=== PATIENT | female | born 1975 | race Caucasian/White ===

== ENCOUNTER 2019-12-18 15:25 | Outpatient (CLI) | payer OTHER, SELFPAY ==
--- NOTE | 2019-12-18 15:31 | MM_ITS ---
WS: [id number] BILATERAL DIGITAL SCREENING MAMMOGRAPHY WITH CAD CLINICAL INFORMATION: SCREENING HISTORY: Screening mammogram. No current complaints. COMPARISON: 43 TECHNIQUE: Bilateral CC and MLO views. FINDINGS: The breasts are composed of heterogeneous fibroglandular density tissue, which can limit the detectio n of small underlying mass lesions. Slightly spiculated lesion 7 mm outer left breast best seen on th e CC view. Recommend spot compression views and ultrasound for further evaluation. Right breast is un remarkable and unchanged. MM/[place] [id number] IMPRESSION: BI-RADS: 0-Incomplete: Need additional imaging evaluation FOLLOW UP: Need Additional Imaging RECOMMEND LEFT BREAST DIAGNOSTIC MAMMOGRAPHY WITH SPOT COMPRESSION VIEWS AND UL TRASOUND
== END 2019-12-18 15:26 | disposition home or self-care (01) ==
LOC: RADSHAW 15:28
PROVIDERS: PCP Electrodiagnostic Medicine; Visit Provider Electrodiagnostic Medicine
DX: Z12.31 Encounter for screening mammogram for malignant neoplasm of breast (principal); N64.89 Other specified disorders of breast
CPT/HCPCS: 77067

== ENCOUNTER 2020-01-05 15:26 | Outpatient (CLI) | payer OTHER, SELFPAY ==
--- NOTE | 2020-01-05 15:47 | US_ITS ---
WS: [id number] ULTRASOUND PELVIS TECHNIQUE: Transabdominal and transvaginal. ULTRASOUND PELVIS TECHNIQUE: Transabdominal. CLINICAL INFORMATION: PELVIC AND PERINEAL PAIN LMP: December 29, 2019 : No. COMPARISON: None. FINDINGS: Uterus Orientation: Anteverted. Size: 10.4 cm x 3.5 cm x 5.1 cm. Masses: None. Cervix: 4.6 cm. Endometrium: Normal. Endometrium thickness: 6.8 mm Adnexa: Left ovary removed. Normal right ovary. Free fluid: None. Other findings: None. US/US pelvic with transvaginal IMPRESSION: 1. Left ovary removed. Normal right ovary. 2. Normal uterus and endometrium.
== END 2020-01-05 15:27 | disposition home or self-care (01) ==
LOC: US 15:31
PROVIDERS: PCP Electrodiagnostic Medicine; Visit Provider Electrodiagnostic Medicine
DX: R10.2 Pelvic and perineal pain (principal); R10.9 Unspecified abdominal pain; Z90.721 Acquired absence of ovaries, unilateral
CPT/HCPCS: 76830; 76856

== ENCOUNTER 2020-01-09 11:29 | Outpatient (CLI) | payer OTHER, SELFPAY ==
--- NOTE | 2020-01-09 12:00 | MM_ITS ---
WS: [id number] LEFT DIGITAL MAMMOGRAPHY WITH CAD CLINICAL INFORMATION: abnormal mammo 7mm lesion LT breast COMPARISON: December 18, 2019 TECHNIQUE: 2 views of the left breast were obtained. FINDINGS: Scattered fibroglandular densities of the left breast. Stable 6 to 7 mm lesion upper outer left breas t. Ultrasound is pending. ULTRASOUND BREAST LEFT TECHNIQUE: Ultrasound left breast focused area of concern. CLINICAL INFORMATION: abnormal mammo 7mm lesion LT breast COMPARISON: None. FINDINGS: Ultrasound left breast 12 to 3:00 position. Several small cystic and slightly complex cystic lesions. Findings compatible with fibrocystic changes. This has a benign appearance. Recommend return to [facility] screening mammography. MM/[place] [id number] IMPRESSION: BI-RADS: 2-Benign FOLLOW UP: 1 Year Follow-up Recommend return to annual screening mammography.
--- NOTE | 2020-01-09 12:45 | US_ITS ---
WS: [id number] LEFT DIGITAL MAMMOGRAPHY WITH CAD CLINICAL INFORMATION: abnormal mammo 7mm lesion LT breast COMPARISON: December 18, 2019 TECHNIQUE: 2 views of the left breast were obtained. FINDINGS: Scattered fibroglandular densities of the left breast. Stable 6 to 7 mm lesion upper outer left breas t. Ultrasound is pending. ULTRASOUND BREAST LEFT TECHNIQUE: Ultrasound left breast focused area of concern. CLINICAL INFORMATION: abnormal mammo 7mm lesion LT breast COMPARISON: None. FINDINGS: Ultrasound left breast 12 to 3:00 position. Several small cystic and slightly complex cystic lesions. Findings compatible with fibrocystic changes. This has a benign appearance. Recommend return to [facility] screening mammography. US/US breast LT limited* [id number] IMPRESSION: BI-RADS: 2-Benign FOLLOW UP: 1 Year Follow-up Recommend return to annual screening mammography.
== END 2020-01-09 11:30 | disposition home or self-care (01) ==
LOC: RADSHAW 11:31
PROVIDERS: PCP Electrodiagnostic Medicine; Visit Provider Electrodiagnostic Medicine
DX: R92.8 Other abnormal and inconclusive findings on diagnostic imaging of breast (principal)
CPT/HCPCS: 76642; 77065

== ENCOUNTER → 2020-02-13 16:00 | Outpatient (BNVA) | payer OTHER, SELFPAY | PROVIDERS: PCP Electrodiagnostic Medicine; Visit Provider Nurse Practitioner Women's Health | DX: Z11.3 Encounter for screening for infections with a predominantly sexual mode of transmission (principal); R10.2 Pelvic and perineal pain; N94.5 Secondary dysmenorrhea | CPT/HCPCS: 87491; 87591; 87661 ==

== ENCOUNTER → 2020-02-17 09:22 | Outpatient (BNVA) | payer OTHER, SELFPAY | PROVIDERS: PCP Electrodiagnostic Medicine; Visit Provider Obstetrics & Gynecology | DX: N92.0 Excessive and frequent menstruation with regular cycle (principal); N94.5 Secondary dysmenorrhea | CPT/HCPCS: 88305 ==

== ENCOUNTER → 2020-03-05 11:34 | Outpatient (BNVA) | payer OTHER, SELFPAY | PROVIDERS: PCP Electrodiagnostic Medicine; Visit Provider Obstetrics & Gynecology | DX: N92.0 Excessive and frequent menstruation with regular cycle (principal); R10.2 Pelvic and perineal pain | CPT/HCPCS: 87635 ==

== ENCOUNTER 2020-03-11 09:27 | Inpatient (IN) | payer OTHER, SELFPAY ==
[2020-03-05 10:27] VITALS: BMI 41.7
[2020-03-05 12:13] LABS: Basophils % 0.5 %; Eosinophils # 0.1 10^3/uL (0.0-0.8); Eosinophils % 1.1 %; Hematocrit 45.4 % (37.0-47.0); Lymphocytes # 1.3 10^3/uL (0.8-4.8); Lymphocytes % 22.6 %; Mean Corpuscular Hemoglobin 30.2 pg (28.0-34.0); Mean Corpuscular Volume 91.5 fL (81-99); Monocytes # 0.4 10^3/uL (0.2-0.9); Monocytes % 6.7 %; Neutrophils # 3.92 10^3/uL (1.8-7.7); Neutrophils % 68.7 %; Nucleated Red Blood Cells % 0 %; Platelet Count 230 10^3/cmm (130-400); Red Blood Count 4.96 10^6/uL (4.1-5.3); Red Cell Distribution Width 11.9 % (12.1-15.1); White Blood Count 5.7 10^3/uL (4.0-10.0)
--- NOTE | 2020-03-05 13:20 | ANES.PREANE2 ---
Pre-Anesthetic Assessment Pre-Anesthetic Assessment: Height/Weight: Height 1.55 m Weight 100.244 kg Preop Diagnosis: Menorrhagia, dysmenorrhea, pelvic pain Proposed Procedure: Operation Date: 03/11/20 07:00 Proposed Procedures p Total Abdominal Hysterectomy 88926 [id number] R10.2 N73.6 N92.0(Not Applicable) - Tasha Thurman MD s right Salpingo Oophorectomy (Open)(Right) - Tasha Thurman MD Familial anesthetic complications: None Was Beta Jenifer taken within 24 hours: N/A Social: Social History: No alcohol and No tobacco Exam: Pre-Anes Outpt Exam: alert, oriented x 3, clear to auscultation bilaterally and regular rate & rhythm Airway: Submandibular: WNL Cervical ROM: WNL MP: 2 Dentition: Full History/ROS: No significant history except as noted Metabolic: Metabolic: Morbid obesity Anesthetic Plan: ASA status: 2 Anesthesia: General Other: H/O PONV Risk of > 500 ml blood loss (7ml/kg in children): No PFSH Anesthesia PFSH: Medical History Menorrhagia No pertinent past medical history neghx: htn,dm,thyroid,dvt/pe Surgical History Hx of section 2001 2003 Hx of cholecystectomy Hx of laparoscopy two operations-- adhesions Hx of oophorectomy Left side Hx of tubal ligation (~11/27/03) Hx of unilateral salpingectomy L side Family History Sister Breast cancer dx age 42 Thyroid disease Father Diabetes Heart disease Hypertension Family/Other Ovarian cancer Paternal Aunt-- dx age in 60's Uterine cancer Paternal Aunt-- dx age 60's Grandmother Stroke Paternal Denies family history of Colon cancer Social History Additional social history: - Tobacco use: Never Alcohol use: denies Drug use: denies Data Anesthesia CBC & Chem 7: 03/05/20 10:42 Other Labs: Laboratory Results - last 48 hr 03/05/20 10:42 WBC 5.7 RBC 4.96 Hgb 15.0 Hct 45.4 MCV 91.5 MCH 30.2 MCHC 33.0 RDW 11.9 L Plt Count 230 MPV 12.0 H Neut % (Auto) 68.7 Lymph % (Auto) 22.6 [place] % (Auto) 6.7 Eos % (Auto) 1.1 Baso % (Auto) 0.5 Neut # (Auto) 3.92 Lymph # (Auto) 1.3 [place] # (Auto) 0.4 Eos # (Auto) 0.1 Baso # (Auto) 0.0 Nucleated RBC % (auto) 0 Nucleated RBCs # 0.0 Cardiac Studies: No Data to Display
[2020-03-11] VITALS (21 sets, daily range): BP systolic 95–140; BP diastolic 43–91; PULSE 63–100; RESP 12–20; TEMP 36.6–37.2; O2SAT 91–100
[2020-03-11 06:24] LABS: OR HCG Qualitative Urine Negative (Negative)
--- NOTE | 2020-03-11 06:28 | P.ANESUD_ITS ---
Pre-Anesthetic Update Pre-Anesthetic Assessment: Date of Surgery/Procedure: 03/11/20 Preop Sindi gnosis: Menorrhagia, dysmenorrhea, pelvic pain Proposed Procedure: Operation Date: 03/11/20 07:00 Proposed Procedures p Total Abdominal Hysterectomy 45557 [id number] R10.2 N73.6 N92.0(Not Applicable) - Tasha Thurman MD s right Salpingo Oophorectomy (Open)(Right) - Tasha Thurman MD Any changes to Pre-Anesthetic Assessment?: No Last Intake: Intake Last Liquid Date 03/10/20 Last Liquid Time 22:00 Last Solid Date 03/10/20 Last Solid Time 21:00 Labs Last 48hrs: Laboratory Results - last 48 hr 03/11/20 05:56 Urine HCG, Qual Negative Vitals: Temperature 97.9 F 03/11/20 06:02 Temperature Source Temporal Artery S can 03/11/20 06:02 Pulse Rate 100 03/11/20 06:02 Respiratory Rate 18 03/11/20 06:02 Blood Pressure 140/91 03/11/20 06:02 Blood Pressure Melissa n 107 03/11/20 06:02 Pulse Oximetry 99 03/11/20 06:02 Oxygen Delivery Me thod 03/11/20 06:02 Exam: Pre-Anes Outpt Exam: alert, oriented x 3, clear to auscultation bilaterally and regular rate & rhythm Cardiac Studies: No Data to Display
--- NOTE | 2020-03-11 06:38 | W.PM.OPSUD ---
Surgery/Procedure H&P Update DATE OF PROCEDURE: March 11, 2020 DATE H&P PERFORMED: 03/03/20 H&P UPDATE INFORMATION: I have reviewed H&P completed within last 30 days, I have examined patient prior to procedure and No changes to prior documentation PREOP DIAGNOSIS: Menorrhagia, dysmenorrhea, pelvic pain PLANNED PROCEDURE: Operation Date: 03/11/20 07:00 Proposed Procedures p Total Abdominal Hysterectomy [id number] R10.2 N73.6 N92.0(Not Applicable) - Tasha Thurman MD s right Salpingo Oophorectomy (Open)(Right) - Tasha Thurman MD
[2020-03-11] MEDS: gabapentin 300 mg Capsule PO (06:45)
[2020-03-11] MEDS: lactated ringers 500 ML IV (06:45)
[2020-03-11] MEDS: CELEcoxib 200 mg Capsule 400 MG PO (06:45)
[2020-03-11] MEDS: ketorolac 30 mg/mL INJ IVP ×4 (06:45→23:47)
[2020-03-11] MEDS: scopolamine 1.5 Patch 1 PATCH TRANSDERMA (06:56)
[2020-03-11] MEDS: sodium chloride 0.9% 1,000 ML 30 ML IV (06:56)
--- NOTE | 2020-03-11 08:03 | SUR.OPER ---
0730-updated procedure started
--- NOTE | 2020-03-11 09:01 | P.OP_ITS ---
Operative Report Date of procedure: March 11, 2020 Pre-op Diagnosis: Menorrhagia, dysmenorrhea, pelvic pain Post-op diagnosis: same Post-op Findings: normal appearing uterus, tube and ovary, endometriosis Procedure Done: 03/11/20 Implants: none Specimens removed/disposition: uterus, right fallopian tube and ovary Pathology: uterus, right fallopian tube and ovary Surgeon: Tasha Thurman Anesthesia: General Estimated blood loss (mL): 350 IV fluids (mL): 1,500 Urine output (mL): 125 Complications: none Condition: stable Disposition: floor Procedure: Patient was taken to the operating room where general anesthesia was administered and found to be adequate. She was prepped and draped in the normal sterile fashion in the dorsal supine position. A Ramos catheter was placed. A Pfannenstiel skin incision was made over the previous incision and carried down to the underlying layer of fascia. The fascia was nicked in the midline and extended laterally with the Ray scissors. The fascia was then tented up and the rectus muscles dissected off bluntly. The peritoneum was entered bluntly with the digit and extended superiorly and inferiorly with good visualization of the bladder. The uterus was elevated with [place] clamps., O'Palacios retractor was placed and the bowel was packed away. The bladder blade was placed. There were dense adhesions of the bladder to the uterus and cervix. It was also adhesed to the left pelvic sidewall. There was endometriosis present as well. The round ligaments were taken bilaterally. They were suture ligated and the round ligament opened. A window was made in the broad ligament on the right side and the clamp was placed inferior to the right tube and ovary. The infundibulopelvic ligament was clamped cut and suture-ligated. The anterior peritoneum was opened and the bladder flap created. The bladder had to be teased away from the uterus. The bladder was reflected caudally. Sequentially using the Zac clamps the uterine arteries and cardinal ligaments were clamped cut and suture-ligated. The uterosacral ligaments were clamped cut and suture ligated and tagged. A clamp was placed across the cervix and the uterus and cervix removed. The vaginal cuff was closed with 0 Vicryl in a running locked fashion there was excellent hemostasis. The anterior and posterior peritoneum over the vaginal cuff were reapproximated as well. All instruments were removed. The rectus muscles were brought together in the midline with 2-0 Monocryl. The fascia was closed with 0 Vicryl in 2 separate sutures overlapping in the midline. The skin was closed with resorbable ruthann. The patient tolerated the procedure well. Lap and needle counts were correct x3. She was taken to the recovery room in stable condition.
[2020-03-11] MEDS: fentaNYL 50 mcg/mL INJ 2mL IVP ×2 (09:43→09:47)
[2020-03-11] MEDS: lactated ringers 1,000 ML 125 ML IV ×2 (10:32→16:57)
[2020-03-11] MEDS: HYDROcodone-acetaminophen 5-325 mg Tablet PO ×2 (12:16→20:06)
--- NOTE | 2020-03-11 12:25 | PC.NURSE ---
Patient c/o pain 10/10 at this time in her left lower abdomen/pelvic area. Will attempt to regain control of pain with [place] at this time. Will reassess pain and if it continues to be increased, will administer ordered Morphine at that time.
[2020-03-11] MEDS: lanolin oint 7 gm 1 APPLIC TOPICAL (13:03)
--- NOTE | 2020-03-11 14:09 | ANE.PACU2 ---
Inpatient post-anesthesia follow up: Airway intact: Yes Vital signs: Temperature 98.2 F Pulse Rate 73 Respiratory Rate 15 Blood Pressure 126/84 Pulse Oximetry 99 Oxygen Delivery Me thod Nasal Cannula Oxygen Flow Rate 8 Fraction of Inspir ed Oxygen Hydration adequate: Yes Nausea and vomiting: No Pain level: 1 Mental status: Baseline
[2020-03-11] MEDS: morphine 4 mg/mL SDV 1 mL IVP (14:32)
[2020-03-11] MEDS: simethicone 80 mg Chew PO (14:39)
[2020-03-11] MEDS: docusate sodium 100 mg Capsule PO (16:57)
[2020-03-11] MEDS: atorvastatin 40 mg Tablet PO (20:42)
[2020-03-12] VITALS (7 sets, daily range): BP systolic 102–130; BP diastolic 64–85; PULSE 68–106; RESP 14–20; TEMP 36.8–37.2; O2SAT 90–97
[2020-03-12] MEDS: lactated ringers 1,000 ML 125 ML IV (02:48)
[2020-03-12] MEDS: HYDROcodone-acetaminophen 5-325 mg Tablet PO ×2 (04:29→09:12)
[2020-03-12] MEDS: ketorolac 30 mg/mL INJ IVP (06:16)
[2020-03-12 08:19] LABS: Hematocrit 33.9 % (37.0-47.0); Hemoglobin 10.9 g/dL (11.5-15.3); Mean Corpuscular HGB Conc 32.2 g/dL (30.0-36.0); Mean Corpuscular Hemoglobin 29.5 pg (28.0-34.0); Mean Corpuscular Volume 91.9 fL (81-99); Mean Platelet Volume 12.5 fL (7.4-10.4); Platelet Count 215 10^3/cmm (130-400); Red Blood Count 3.69 10^6/uL (4.1-5.3); Red Cell Distribution Width 11.9 % (12.1-15.1); White Blood Count 8.1 10^3/uL (4.0-10.0)
[2020-03-12] MEDS: docusate sodium 100 mg Capsule PO ×2 (09:11→17:39)
--- NOTE | 2020-03-12 13:49 | PC.CHAP ---
Pastoral Care Encounter/Spiritual Assessment Type of Contact [] Declined chemical process engineer visit [] Patient/Family/Request visit [] Outpatient visit [] Follow-up visit [] Physician referral [] Code/Alert [xx] Routine visit [] Staff referral [] Actively dying [] Patient sleeping [] Family support [] [] Out of room [] Palliative care [] [] Receiving care in room [] Pre-surgical visit [] Trauma [] Long length of stay [] ICU visit [] Other: Relational/Emotional Strength [xx] Patient feels connected with others/family/visitors/staff [] Distress [] Loneliness/isolation [] Abandonment Spirituality of Patient [xx] Person of Nicole [xx] Attends [facility] of their Nicole [xx] Believes in Prayer [xx] Reads Bible or Faith materials [] There are Spiritual issues to be addressed Manager Simulation Interventions xx[] Prayer [xx] Active listening [xx] Non-anxious presence [] Spiritual/emotional support [] Crisis/trauma care [] Spiritual counseling [] Bereavement support [] Provided bereavement packet [xx] Provided Bible/devotional materials [] Provided toy/stuffed animal, coloring book to patient or family member [] Provided Communion [] Anointing/[place] [] Salvation [xx] Completed spiritual assessment [] Other: Impact on Illness or Injury [] Angry [] Fearful [] Anxious [] Often cries [] Exhaustion [] Unable to work [] Unable to attend baptist [] Unable to walk/stand [] Unable to read [] Unable to drive [] Unable to eat/drink [] Unable to sleep [] Unable to be with family [] Patient intubated [] Other: Summary Patient is worried about her younger daughter who got infection. Daughter got nipped by goat which caused her to reflexively hit alejandro on fence wire with her already injured hand. Patient also requested prayer for entire family. Time spent with patient 12 minutes
[2020-03-12] MEDS: ibuprofen 800 mg tablet PO ×2 (16:06→20:20)
--- NOTE | 2020-03-12 17:12 | PM.OBGYPN ---
TAXATION CONSULTANT Subjective Subjective: Interval history: The patient is doing well this am. She denies any pain. Her IV has infiltrated. Ok to not restart IV. She is tolerating a regular diet. She is ambulating. Villalba catheter in place. Vitals/I&O/Wt Last Vital Signs Temp 98.7 F 03/12/20 16:00 Pulse 88 03/12/20 16:00 Resp 16 03/12/20 16:00 BP 130/85 03/12/20 16:00 Pulse Ox 97 03/12/20 16:00 03/12/20 03/12/20 03/12/20 06:59 14:59 22:59 Intake Total 1050 / 3112.083 880 / 880 Output Total 1900 / 2950 Balance -850 / 162.083 880 / 880 Physical Exam Const: COMMON NORMALS: no acute distress and patient oriented x3 GENERAL APPEARANCE: cooperative and comfortable ORIENTATION/CONSCIOUSNESS: Yes awake, Yes oriented to person, Yes oriented to place and Yes oriented to time GI: COMMON NORMALS: Normal to inspection, nondistended, normoactive bowel sounds present, Soft to palpation and non-tender INSPECTION: Yes normal to inspection PALPATION: Yes Soft to palpation Neuro: COMMON NORMALS: patient oriented x3 SENSORIUM/ORIENTATION: Yes oriented to person, Yes oriented to place and Yes oriented to time Skin: WOUNDS: Yes surgical site (clean, dry and covered.) Urinary Catheter Management^: Villalba: Cath Placed During This Visit: yes Reason for Continuing Indwelling Catheter: Perioperative Use in Selected Surgeries Urinary Catheter Date of Insertion: 03/11/20 Urinary Catheter Time of Insertion: 07:10 Data : 03/12/20 05:22 A&P Assessment and plan (1) Postoperative state: POD #! doing well remove villalba today encourage ambulation patient may shower and remove bandage. likely home tomorrow Status: Acute Attestations Medical Necessity Statement*: Patient has had major surgery. Plan to stay inpatient 2-3 nights Time Spent in Patient Care: 16 - 35 minutes (>than 50% of time spent in counselling and/or direct pt care on unit). Coding Level of Care Code Acute Combat Systems Operator for Jyoti Nguyen Diagnoses Postoperative state Z98.890
[2020-03-12] MEDS: oxyCODONE-APAP 5-325 mg Tablet PO (17:39)
[2020-03-12] MEDS: atorvastatin 40 mg Tablet PO (20:20)
[2020-03-13] VITALS: BP 113/65; PULSE 94; RESP 18; TEMP 36.7; O2SAT 93
[2020-03-13 00:40] VITALS: RESP 16
[2020-03-13] MEDS: oxyCODONE-APAP 5-325 mg Tablet PO (00:40)
[2020-03-13 04:00] VITALS: BP 103/67; PULSE 94; RESP 18; TEMP 36.5; O2SAT 96
[2020-03-13] MEDS: ibuprofen 800 mg tablet PO ×2 (04:31→11:23)
[2020-03-13 08:00] VITALS: BP 105/68; PULSE 92; RESP 18; TEMP 36.7; O2SAT 93
[2020-03-13] MEDS: HYDROcodone-acetaminophen 5-325 mg Tablet PO ×2 (08:39→14:42)
[2020-03-13] MEDS: docusate sodium 100 mg Capsule PO (08:40)
--- NOTE | 2020-03-13 10:15 | P.DS_ITS ---
Discharge Providers MULTI SITE LEASING CONSULTANT Date of Admission: 03/11/20 09:27 Date of Discharge: 03/13/20 Attending Provider at Admission: Tasha Thurman MD Attending Provider at Discharge: Israel Mckeon MD Primary Care Provider: John Rowley DO Diagnoses at Discharge Discharge Diagnosis (1) Postoperative state: Status: Acute Permanent problem details: Patient is status post total abdominal hysterectomy postoperative day 2 Reason for Visit Reason for Visit: Total abdominal hysterectomy/right salpino-oophore Hospital Course Hospital Course Mrs. Maravilla is 44 year old female with 2 Para 2-0-0-2, with a history of abnormal uterine bleeding dysmenorrhea and pelvic pain. Admitted for planned total abdominal hysterectomy. The procedure was performed without complication. Postop observation has been uneventful until this morning the patient has been feeling a little nauseous. Zofran was prescribed. she is afebrile and hemodynamically stable. Ambulating without difficulty. Tolerating diet well. Pain under control with medication. Physical Exam Narrative: EXAM NARRATIVE: GA: Alert and oriented ?3. HEENT: WNL. Heart: Regular rate and rhythm. Lungs: Clear to auscultation bilaterally. Abdomen: Bowel sounds present, nontender, minimal tenderness, incision clean and dry, no redness, pain or edema. BAR AND FILLER ASSEMBLER: No bleeding. Extremities: No edema, no cyanosis, no calves pain. Urinary Catheter Management^: Ramos: Cath Placed During This Visit: yes, but has since been removed by the nurse Reason for Continuing Indwelling Catheter: Decision to DC Catheter Urinary Catheter Date of Insertion: 03/11/20 Urinary Catheter Time of Insertion: 07:10 Date Urinary Catheter Removed: 03/12/20 Time Urinary Catheter Discontinued: 19:48 Discharge Data Data Completed and Pending: Pending at discharge Category Date Time Status Pathology: Surgic al [PTH] Routine Pth 03/11/20 09:10 Received Vitals: Last Vital Signs Temp 98.0 F 03/13/20 08:00 Pulse 92 03/13/20 08:00 Resp 18 03/13/20 08:00 BP 105/68 03/13/20 08:00 Pulse Ox 93 03/13/20 08:00 Discharge Plan Discharge Patient Disposition: Home Condition: Stable Prescriptions: [place] 5-325 mg tablet 1 tab PO Q4H PRN (Reason: pain) Qty: 30 RF: 0 docusate sodium [Colace] 100 mg capsule 100 mg PO BID Qty: 60 RF: 0 ferrous sulfate 325 mg (65 mg iron) tablet 325 mg PO BID Qty: 60 RF: 0 ibuprofen 800 mg tablet 800 mg PO TID PRN (Reason: pain) Qty: 60 RF: 0 acetaminophen 325 mg capsule 325 mg PO Q4H PRN (Reason: fever or pain) Qty: 60 RF: 0 Continued ascorbate calcium (vitamin C) 500 mg tablet 1,000 mg PO DAILY RF: 0 zinc 50 mg tablet 50 mg PO DAILY RF: 0 atorvastatin [Lipitor] 10 mg tablet 40 mg PO DAILY RF: 0 cholecalciferol (vitamin D3) 10 mcg (400 unit) capsule 10 mcg PO DAILY RF: 0 Discharge Orders: Discharge Order (Routine); Ordered 03/13/20 Ordered By: Israel Mckeon Referrals: Tasha Thurman MD [Physician] - 2 weeks Discharge Diet: Usual diet Discharge Activity: Increase activity as tolerated Patient Instructions: Abdominal Hysterectomy (DC) Activity Restrictions/Additional Instructions: 1. Please call [facility] on next working day to make your post-operative appointment in [address] Thurman. 2. Please stay home until you come back to the clinic on first post-operative check up. 3. Please follow instructions on your medications CAREFULLY. 4. If you have abdominal incision, do not cover it unless dressing is necessary because of drainage. OK to shower, but avoid bath. Leave steri-strips until they fall off. If they are still on one week after surgery, you may remove them. 5. If you had vaginal surgery, your doctor may instruct you to take SITZ bath. 6. Yellow, blood tinged odorous vaginal discharge is usually normal after hysterectomy or vaginal surgeries. 7. No sexual intercourse, tampons, or douches until you are completely released from the post-operative care. 8. Avoid constipation by eating right and maybe using some Metamucil or Milk of Magnesia. 9. All prescription refills are given during the working hours. Please do no wait till it runs out. Call the clinic at [phone] before your medication runs out. The clinic will get in touch with your doctor to prescribe medications if necessary. 10. Please remain within 40 mile radius from our hospital because emergencies do happen now and then during the post-operative period. 11. If you have stairs at home, take one step at a time slowly and minimize the number of trips. It helps to stay in one floor for the next few days. No lifting except what you can lift by one hand until you are released from the post-operative care. 12. Driving is discouraged until you are well healed. It may be 3-4 weeks before you feel strong enough to drive. You should be able to turn and look through the rear window without pain and you should be able to push the brake pedal very hard without pain before you drive. No fast rules, but SAFETY should be your primary concern. DO NOT drive if you are on sedating medications such as narcotics. 13. Call the clinic (during working hours) to make urgent appointment or go to the Emergency room, if any of the following occurs: i. Vaginal bleeding becomes heavy, more than a period. ii. Incision becomes red and sore, or drains pus. iii. Your temperature is over 100.4 or you have chill. iv. IV site becomes red and swollen (a little ``knot?? is usually OK) v. Persistent nausea and vomiting vi. Persistent constipation or diarrhea vii. Rash or allergic reaction to medications. Discharge Attestations MULTI SITE LEASING CONSULTANT Time Spent in Discharge Care*: greater than 30 min Coding Level of Care Code Acute Asbestos Shingle Inspector for Jyoti Nguyen Diagnoses Postoperative state Z98.890
[2020-03-13] MEDS: ondansetron 2 mg/ML SDV 2 mL 4 MG IM (10:24)
[2020-03-13 11:41] VITALS: BP 129/87; PULSE 99; RESP 16; TEMP 36.9; O2SAT 90
[2020-03-13] MEDS: acetaminophen 325 mg Tablet 650 MG PO (12:31)
--- NOTE | 2020-03-13 14:03 | PC.NURSE ---
Patient states she is feeling somewhat better after her vomiting episode a few hours ago. States she has been up to the restroom twice since I last rounded on her, and states her pain is somewhat better now. States she feels best when she just rests in bed.
[2020-03-13 15:47] VITALS: BP 113/73; PULSE 85; RESP 18; TEMP 37.4; O2SAT 95
== END 2020-03-13 16:00 | disposition home or self-care (01) | DRG 743 ==
LOC: MEDSURG 03-12 07:01
PROVIDERS: Anesthesiology; Admitting Provider Obstetrics & Gynecology; PCP Electrodiagnostic Medicine; Visit Provider Obstetrics & Gynecology
PROC: 0UT90ZZ Resection of Uterus, Open Approach (ICD-10-PCS; CPT 58150; principal; 2020-03-11 07:00)
PROC: 0UT90ZZ Resection of Uterus, Open Approach (ICD-10-PCS; CPT 58720; 2020-03-11 07:00)
DX: N94.6 Dysmenorrhea, unspecified (principal); N92.0 Excessive and frequent menstruation with regular cycle; N80.9 Endometriosis, unspecified
CPT/HCPCS: 12345; 36415; 51702; 81025; 84703; 85025; 85027; 86850; 86900; 87086; 88307; 96365; 96372; 96374; J0131; J0690; J1100; J1170; J1885; J2250; J2270; J2405; J2550; J2704; J2710; J3010; J3490; J7030

== ENCOUNTER 2020-06-23 11:21 | Emergency (ER) | payer OTHER, SELFPAY ==
[2020-06-23 11:55] VITALS: BP 139/91; PULSE 93; RESP 16; TEMP 36.5; O2SAT 100; BMI 43.8
--- NOTE | 2020-06-23 12:50 | CT_ITS ---
WS: [id number] CT ABDOMEN PELVIS TECHNIQUE: Contrast-enhanced CT of the abdomen and pelvis with coronal and sagittal reformatted image s. CLINICAL INFORMATION: LLQ pain COMPARISON: CT abdomen pelvis 2 21,019 DLP: 1715.[address] scans at [facility] use at least one of these dose optimization techniques: automat ed exposure control; mA and/or kV adjustment per patient size (includes targeted exams where dose is matched to clinical indication); or iterative reconstruction. FINDINGS: Prior postoperative changes cholecystectomy and left oophorectomy. Diffuse fatty infiltration of the liver. Normal spleen. Normal pancreas. Normal GE junction. Lung bases are well aerated. Adrenal gland s are normal. Normal renal parenchymal enhancement. No hydronephrosis. Small left renal cyst. Normal caliber abdominal aorta. Thickening with inflammatory stranding involving the sigmoid colon and the left lower quadrant consis tent with acute diverticulitis. Surrounding edema. Small amount of fluid in the left pericolic gutter . No drainable abscess or fluid collection. Chronic bilateral pars defects L5-S1. No significant anterolisthesis. CT/CT abdomen pelvis w con* [id number] IMPRESSION: 1. Inflammatory stranding with edema involving the left lower quadrant sigmoid colon consistent with acute diverticulitis. Small amount of edema and fluid in the left pericolic gutter. 2. No drainable abscess or fluid collection. 3. Diffuse fatty infiltration of the liver. 4. Cholecystectomy clips. 5. Chronic bilateral pars defects L5-S1. No significant anterolisthesis. Notified Modesta Torres DO at 06/23/2020 2:30 PM.
--- NOTE | 2020-06-23 13:08 | ED_ITS ---
HPI - Abdominal Pain General: Chief Complaint: Abdominal Pain Stated Complaint: lower abdominal pain/ sent over from [facility] Time Seen by Provider: 06/23/20 12:48 History of Present Illness: HPI narrative: Patient presents with left lower quadrant pain that started yesterday and is progressed today. It is a sharp stabbing pain in her left side that is progressively getting worse. She denies any vomiting or diarrhea denies any recent fevers or chills denies urine complaints. She has seen her provider who sent her here for the CT scan of her abdomen and pelvis. Patient has had a partial hysterectomy , cholecystectomy C-sections and does have a history of adhesions. Pain is worse with movement and walking but is improved with lying still and laying down Review of Systems Narrative: General: denies fatigue, fever or chills HEENT: denies ear pain, denies nasal congestion, denies vision changes, denies sore throat Neck: denies masses or pain Resp: denies cough, denies shortness of breath, denies pleuritic pain Cardio: denies chest pain, denies edema GI: ++abdominal pain, denies N/V/D, denies black/tarry or bloody stools : denies hematuria, denies dysuria Neuro: denies headache, denies dizziness, denies motor or sensory changes Musculoskeletal: denies pain, denies swelling Skin: denies rashes Psych: denies SI or HI Endocrine: denies thyroid symptoms, denies lymphadenopathy all over ROS reviewed and patient denies PFSH ED PFSH: Medical History Menorrhagia No pertinent past medical history neghx: htn,dm,thyroid,dvt/pe Surgical History Hx of section 2001 2003 Hx of cholecystectomy Hx of laparoscopy two operations-- adhesions Hx of oophorectomy Left side Hx of tubal ligation (~11/27/03) Hx of unilateral salpingectomy L side Family History Sister Breast cancer dx age 42 Thyroid disease Father Diabetes Heart disease Hypertension Family/Other Ovarian cancer Paternal Aunt-- dx age in 60's Uterine cancer Paternal Aunt-- dx age 60's Grandmother Stroke Paternal Denies family history of Colon cancer Social History Smoking and tobacco status: never smoked Alcohol intake: never Substance/Drug Use: never Additional social history: - Tobacco use: Never Alcohol use: denies Drug use: denies Physical Exam Narrative: EXAM NARRATIVE: General: a/o/3, no distress Head: atraumatic HEENT: normal eyes, normal conjunctiva, normal hearing, normal external nose, normal mouth, mucous membranes moist Neck: FROM, trachea midline Chest: normal expansion, no gross deformities Resp: normal speech, no retractions, no accessory muscle use, CTA bilaterally Cardio: regular rate and rhythm and no murmur, no peripheral edema, normal peripheral pulses GI: soft, flat LLQ tender, no guarding normal BS : deferred Musculoskeletal: FROM, no pain or gross deformities Neuro: a/o appropriate for age, no gross motor or sensory deficitys, CN II-XII grossly intact, normal coordination, normal speech Skin: no rashes Psych: cooperative, normal mood and effect Course Vital Signs: Vital signs: Vital Signs Temperature 97.7 F 06/23/20 11:55 Pulse Rate 89 06/23/20 14:41 Respiratory Rate 16 06/23/20 14:41 Blood Pressure 133/96 06/23/20 14:41 Pulse Oximetry 99 06/23/20 14:41 MDM - Abdominal Pain MDM Narrative: Medical decision making narrative: Patient declined any pain medication here in the emergency department her white count is normal radiology called me with the verbal report of diverticulitis no perforation no abscess and there is some mild fluid around this colon. We will treat her with Cipro and Flagyl. Patient has some hydrocodone left over at home says they have made her really act weird so she wants to try the tramadol patient is aware no drinking with her antibiotics and that she needs to follow-up next week and/or may eventually need a colonoscopy she can arrange as an outpatient once her symptoms have resolved Lab Data: Labs: Lab Results 06/23/20 06/23/20 06/23/20 Range/Units 12:58 13:10 13:10 WBC 7.4 (4.0-10.0) 10^3/ uL RBC 5.04 (4.1-5.3) 10^6/u L Hgb 14.5 (11.5-15.3) g/dL Hct 44.0 (37.0-47.0) % MCV 87.3 (81-99) fL MCH 28.8 (28.0-34.0) pg MCHC 33.0 (30.0-36.0) g/dL RDW 12.2 (12.1-15.1) % Plt Count 219 (130-400) 10^3/c mm MPV 11.4 H (7.4-10.4) fL Neut % (Auto) 76.1 % Lymph % (Auto) 16.2 % Starr % (Auto) 6.5 % Eos % (Auto) 0.4 % Baso % (Auto) 0.5 % Neut # (Auto) 5.60 (1.8-7.7) 10^3/u L Lymph # (Auto) 1.2 (0.8-4.8) 10^3/u L Starr # (Auto) 0.5 (0.2-0.9) 10^3/u L Eos # (Auto) 0.0 (0.0-0.8) 10^3/u L Baso # (Auto) 0.0 (0.0-0.1) 10^3/u L Nucleated RBC % (a uto) 0 % Nucleated RBCs # 0.0 /100WBC Sodium 140 (136-145) mmol/L Potassium 4.5 (3.5-5.1) mmol/L Chloride 102 (98-107) mmol/L Carbon Dioxide 28 (22-29) mmol/L Anion Gap 14.5 (5-19) BUN 7 (6-20) mg/dL Creatinine 0.5 (0.5-0.9) mg/dL GFR Calculation 134.7 H (90-130) mL/min Glucose 100 (65-115) mg/dL Calculated Osmolal ity 288 (285-295) mOsm/k g Calcium 9.1 (8.5-10.5) mg/dL Total Bilirubin 0.7 (0.15-1.2) mg/dL AST 22 (0-32) U/L ALT 30 (0-33) U/L Alkaline Phosphata se 101 (35-105) IU/L Total Protein 7.1 (6.6-8.7) g/dL Albumin 4.2 (3.5-5.2) g/dL Globulin 2.9 (1.3-4.6) g/dL Lipase 26 (13-60) U/L Urine Color Straw (Yellow) Urine Appearance Clear (CLEAR) Urine pH 8 H (5-7) Ur Specific Gravit y 1.010 (1.005-1.030) Urine Protein Neg (Negative) Urine Glucose (UA) Norm (Normal) Urine Ketones Negative (Negative) Urine Blood Neg (Negative) Urine Nitrate Negative (Negative) Urine Bilirubin Neg (Negative) Prot Sulfosalicyli c Acd Negative (Negative) Urine Urobilinogen Norm (Negative) mg/dL Ur Leukocyte Elizabet ase Negative (Negative) Urine RBC 0-4 H (0-2) /hpf Urine WBC None (0-5) /hpf Ur Squamous Epith Cells 0-4 H (0-5) /hpf Amorphous Sediment Not Reportable Urine Bacteria Trace (NONE) /hpf Discharge Plan Discharge Patient Disposition: Home Clinical Impression: Diverticulitis Condition: Stable Prescriptions: New tramadol 50 mg tablet 50 mg PO Q6H PRN (Reason: pain) Qty: 20 RF: 0 ciprofloxacin HCl [Cipro] 500 mg tablet 500 mg PO BID Qty: 14 RF: 0 metronidazole 500 mg tablet 500 mg PO TID 7 Days Qty: 21 RF: 0 No Action atorvastatin [Lipitor] 10 mg tablet 40 mg PO DAILY RF: 0 Discharge Orders: Discharge ED (Routine); Ordered 06/23/20 Ordered By: Modesta Torres Referrals: John Rowley, [Primary Care Provider] - Discharge Diet: Advance as tolerated Discharge Activity: Resume usual activity Patient Instructions: Diverticulitis (ED), Opioid Safety Activity Restrictions/Additional Instructions: You need to avoid seeds nuts or popcorn as this can flareup diverticulitis. These types of items can get stuck in the bowel pockets that are known as diverticulosis which she will have for the rest of your life but when they become infected it becomes diverticulitis. You may try a bowel cleanse and/or stool softeners to try to evacuate Take all of your medications follow-up with your provider sometime down the line you will need to schedule an outpatient colonoscopy to look at the severity of your diverticulosis return if fevers increased pain vomiting worsening of symptoms Thank you for choosing [facility] for your healthcare needs today. Please realize this is an emergency room and that we are providing you with a medical screening exam and this may not be complete and all inclusive of all the testing and or work up that you may need to determine your ailment or severity of your illness. It is very important that you follow up as instructed or that you return to the Emergency Department should you have concerns or if your condition changes or worsens in any way. Coding Level of Care Code ED [employer]line [employer] for Jyoti Nguyen
[2020-06-23 13:19] LABS: Basophils % 0.5 %; Eosinophils % 0.4 %; Hemoglobin 14.5 g/dL (11.5-15.3); Lymphocytes # 1.2 10^3/uL (0.8-4.8); Lymphocytes % 16.2 %; Mean Corpuscular Hemoglobin 28.8 pg (28.0-34.0); Mean Corpuscular Volume 87.3 fL (81-99); Mean Platelet Volume 11.4 fL (7.4-10.4); Monocytes # 0.5 10^3/uL (0.2-0.9); Monocytes % 6.5 %; Neutrophils % 76.1 %; Nucleated Red Blood Cells % 0 %; Platelet Count 219 10^3/cmm (130-400); Red Blood Count 5.04 10^6/uL (4.1-5.3); Red Cell Distribution Width 12.2 % (12.1-15.1); White Blood Count 7.4 10^3/uL (4.0-10.0)
[2020-06-23 13:30] LABS: Bacteria Urine TRACE /hpf; Bilirubin Urine Neg (Negative); Blood Urine Neg (Negative); Glucose Urine UA Norm (Normal); Ketones Urine Negative (Negative); Leukocyte Esterase Urine Negative (Negative); Nitrate Urine Negative (Negative); Protein Urine Neg (Negative); RBC Urine 0-4 /hpf (0-2); Squamous Epithelial Cell Urine 0-4 /hpf (0-5); Sulfosalicylic Acid Urine Negative (Negative); Urine Appearance Clear (CLEAR); Urine Color Straw (Yellow); Urobilinogen Urine Norm (Negative); pH Urine 8 (5-7)
[2020-06-23 13:31] LABS: Add Urine Culture? No
[2020-06-23 13:36] LABS: Alanine Aminotransferase 30 U/L (0-33); Albumin Level 4.2 g/dL (3.5-5.2); Alkaline Phosphatase 101 IU/L (35-105); Blood Urea Nitrogen 7 mg/dL (6-20); Calcium 9.1 mg/dL (8.5-10.5); Carbon Dioxide 28 mmol/L (22-29); Chloride 102 mmol/L (98-107); Globulin 2.9 g/dL (1.3-4.6); Glomerular Filtration Rate 134.7 mL/min (90-130); Glucose 100 mg/dL (65-115); Lipase 26 U/L (13-60); Osmolality Calculated 288 mOsm/kg (285-295); Sodium 140 mmol/L (136-145); Total Bilirubin 0.7 mg/dL (0.15-1.2); Total Protein 7.1 g/dL (6.6-8.7)
[2020-06-23 13:39] LABS: Anion Gap 14.5 (5-19); Aspartate Amino Transferase 22 U/L (0-32); Potassium 4.5 mmol/L (3.5-5.1)
[2020-06-23] MEDS: iohexol 300 mg/mL 100 mL Btl IV (13:40)
[2020-06-23] MEDS: ciprofloxacin 500 mg Tablet PO (14:39)
[2020-06-23] MEDS: metroNIDAZOLE 500 MG Tablet PO (14:39)
[2020-06-23 14:41] VITALS: BP 133/96; PULSE 89; RESP 16; O2SAT 99
== END 2020-06-23 15:28 | disposition home or self-care (01) ==
PROVIDERS: Emergency Provider Emergency Medicine; PCP Electrodiagnostic Medicine
DX: K57.92 Diverticulitis of intestine, part unspecified, without perforation or abscess without bleeding (principal)
CPT/HCPCS: 74177; 80053; 81001; 83690; 85025; 99283; Q9967

== ENCOUNTER 2021-01-10 07:50 | Outpatient (CLI) | payer OTHER, SELFPAY ==
--- NOTE | 2021-01-10 08:05 | MM_ITS ---
WS: [id number] BILATERAL DIGITAL SCREENING MAMMOGRAPHY WITH CAD CLINICAL INFORMATION: SCREENING HISTORY: Screening mammogram. Left breast soreness. COMPARISON: December 18, 2019 TECHNIQUE: Bilateral CC and MLO views. FINDINGS: Scattered fibroglandular densities bilaterally. A few punctate calcifications right breast. No suspic ious focal mass, asymmetry, calcifications, or architectural distortion. No evidence of malignancy. MM/[id number] IMPRESSION: BI-RADS: 2-Benign FOLLOW UP: 1 Year Follow-up Recommend return to annual screening mammography.
== END 2021-01-10 07:51 | disposition home or self-care (01) ==
LOC: RADSHAW 07:51
PROVIDERS: PCP Electrodiagnostic Medicine; Visit Provider Electrodiagnostic Medicine
DX: Z12.31 Encounter for screening mammogram for malignant neoplasm of breast (principal)
CPT/HCPCS: 77067

== ENCOUNTER 2021-10-04 19:07 | Emergency (ER) | payer OTHER, SELFPAY ==
[2021-10-04 19:54] VITALS: BP 149/100; PULSE 108; RESP 16; TEMP 37.3; O2SAT 96; BMI 41.5
[2021-10-04 20:46] LABS: Basophils % 0.4 %; Eosinophils # 0.1 10^3/uL (0.0-0.8); Eosinophils % 0.5 %; Hematocrit 45.8 % (37.0-47.0); Hemoglobin 15.5 g/dL (11.5-15.3); Lymphocytes # 1.6 10^3/uL (0.8-4.8); Lymphocytes % 16.8 %; Mean Corpuscular HGB Conc 33.8 g/dL (30.0-36.0); Mean Corpuscular Hemoglobin 29.6 pg (28.0-34.0); Mean Corpuscular Volume 87.6 fl (81-99); Mean Platelet Volume 11.6 fL (7.4-10.4); Monocytes # 0.8 10^3/uL (0.2-0.9); Monocytes % 8.2 %; Neutrophils # 6.83 10^3/uL (1.8-7.7); Neutrophils % 73.8 %; Nucleated Red Blood Cells % 0 %; Platelet Count 211 10^3/cmm (130-400); Red Blood Count 5.23 10^6/uL (4.1-5.3); Red Cell Distribution Width 12.1 % (12.1-15.1); White Blood Count 9.3 10^3/uL (4.0-10.0)
[2021-10-04 20:50] VITALS: RESP 16
[2021-10-04] MEDS: morphine 4 mg/mL SDV 1 mL IVP (20:50)
[2021-10-04] MEDS: ondansetron 2 mg/ML SDV 2 mL 4 MG IVP (20:50)
--- NOTE | 2021-10-04 20:58 | CTR_ITS ---
PROCEDURE INFORMATION: Exam: CT Abdomen And Pelvis Without Contrast Exam date and time: 10/04/2021 9:41 PM Age: 45 years old Clinical indication: Abdominal pain; Localized; Left lower quadrant (llq); Prior surgery; Surgery type: Gb. Csection. Hysterectomy; Patient HX: C/O llq pain with nausea; Additional info: Abd pain TECHNIQUE: Imaging protocol: Computed tomography of the abdomen and pelvis without contrast. Radiation optimization: All CT scans at this facility use at least one of these dose optimization techniques: automated exposure control; mA and/or kV adjustment per patient size (includes targeted exams where dose is matched to clinical indication); or iterative reconstruction. COMPARISON: CT abdomen pelvis w con* [id number] 06/23/2020 1:45 PM RADIATION DOSE METRICS: Total DLP (mGy-cm): 1059.33 FINDINGS: Liver: Diffuse hepatic steatosis. No mass. Gallbladder and bile ducts: Cholecystectomy. No ductal dilation. Pancreas: Normal. No ductal dilation. Spleen: Normal. No splenomegaly. Adrenal glands: Normal. No mass. Kidneys and ureters: A couple punctate nonobstructing stones noted in the left kidney. No hydronephrosis. Stomach and bowel: Colonic diverticulosis with an inflamed diverticula noted in the distal descending colon. No signs of colonic perforation or pericolonic abscess. No obstruction. Appendix: No evidence of appendicitis. Intraperitoneal space: No free air. No significant fluid collection. Vasculature: Unremarkable. No abdominal aortic aneurysm. Lymph nodes: Unremarkable. No enlarged lymph nodes. Urinary bladder: Unremarkable as visualized. Reproductive: Hysterectomy. Bones/joints: No acute fracture. Soft tissues: Unremarkable. CT/CT abdomen pelvis con [id number] IMPRESSION: 1. Acute uncomplicated diverticulitis in the distal descending colon. 2. Punctate nonobstructing renal stones in the left kidney. 3. Hepatic steatosis.
[2021-10-04 21:12] LABS: Alanine Aminotransferase 52 U/L (0-33); Albumin Level 4.4 g/dL (3.5-5.2); Alkaline Phosphatase 105 U/L (35-105); Blood Urea Nitrogen 9 mg/dL (6-20); Calcium 9.5 mg/dL (8.5-10.5); Carbon Dioxide 23 mmol/L (22-29); Chloride 102 mmol/L (98-107); Globulin 3.2 g/dL (1.3-4.6); Glomerular Filtration Rate 108.6 mL/min (90-130); Glucose 120 mg/dL (65-115); Lipase 33 U/L (13-60); Osmolality Calculated 286 mOsm/kg (285-295); Sodium 138 mmol/L (136-145); Total Bilirubin 0.7 mg/dL (0.15-1.2); Total Protein 7.6 g/dL (6.6-8.7)
[2021-10-04 21:16] LABS: Add Urine Microscopic? NO; Charge for UA Resulting for Rev
[2021-10-04 21:18] LABS: Bilirubin Urine Neg (Negative); Blood Urine Neg (Negative); Glucose Urine UA Norm (Normal); Ketones Urine Negative (Negative); Leukocyte Esterase Urine Negative (Negative); Nitrate Urine Negative (Negative); Protein Urine Neg (Negative); Urine Appearance Clear (CLEAR); Urine Color Yellow (Yellow); Urobilinogen Urine Norm (Negative); pH Urine 7 (5-7)
[2021-10-04 21:18] LABS: Anion Gap 16.9 (5-19); Aspartate Amino Transferase 27 U/L (0-32); Potassium 3.9 mmol/L (3.5-5.1)
--- NOTE | 2021-10-04 21:19 | ED_ITS ---
HPI - Abdominal Pain General: Chief Complaint: Abdominal Pain Stated Complaint: low abd pain Time Seen by Provider: 10/04/21 21:19 History of Present Illness: 45-year-old female comes in today for complaints of left upper abdominal pain. Patient reports that started all of a sudden t jarad. Patient reports some nausea and vomiting with a 2. Patient has a history of renal calculi and diverticulitis. Patient reports no fever. Patient was seen at urgent care earlier and started on Cipro to treat. Patient appears nontoxic. Patient appears moderate pain. Associated Symptoms: Reports nausea and vomiting; Denies constipation, diarrhea, fever(s) and hematochezia Review of Systems Const: Denies: fever(s) Card: Denies: chest pain Resp: Denies: dyspnea GI: Reports: abdominal pain, nausea and vomiting; Denies: diarrhea, constipation or hematochezia PFSH ED PFSH: Medical History Menorrhagia No pertinent past medical history neghx: htn,dm,thyroid,dvt/pe Surgical History Hx of section 2001 2003 Hx of cholecystectomy Hx of laparoscopy two operations-- adhesions Hx of oophorectomy Left side Hx of tubal ligation (~11/27/03) Hx of unilateral salpingectomy L side Family History Sister Breast cancer dx age 42 Thyroid disease Father Diabetes Heart disease Hypertension Family/Other Ovarian cancer Paternal Aunt-- dx age in 60's Uterine cancer Paternal Aunt-- dx age 60's Grandmother Stroke Paternal Denies family history of Colon cancer Social History Smoking and tobacco status: never smoked Alcohol intake: never Additional social history: - Tobacco use: Never Alcohol use: denies Drug use: denies Physical Exam Const: COMMON NORMALS: alert HENMT: COMMON NORMALS: atraumatic HEAD & SCALP: atraumatic Neck/C-Spine: COMMON NORMALS: full ROM Resp: COMMON NORMALS: normal respiratory effort and clear to auscultation bilaterally AUSCULTATION: clear to auscultation bilaterally Cardio: COMMON NORMALS: regular rate and regular rhythm RATE: regular rate RHYTHM: regular rhythm GI: COMMON NORMALS: Soft to palpation AUSCULTATION: Yes normoactive bowel sounds PALPATION: Yes Soft to palpation and Yes Tenderness to palpation present (GI) Details: LUQ : COMMON NORMALS: Yes no CVA tenderness BLADDER/KIDNEY EXAM: Yes no CVA tenderness Back/Pelvis: COMMON NORMALS: no CVA tenderness and thoracic and lumbar spine normal to inspection Extremity: COMMON NORMALS: normal to inspection Neuro: SENSORIUM/ORIENTATION: Yes alert Skin: COMMON NORMALS: turgor normal GENERAL SKIN EXAM: turgor normal Course Vital Signs: Vital signs: Vital Signs Temperature 99.2 F 10/04/21 19:54 Pulse Rate 108 H 10/04/21 19:54 Respiratory Rate 16 10/04/21 20:50 Blood Pressure 149/100 10/04/21 19:54 Pulse Oximetry 96 10/04/21 19:54 Oxygen Delivery Me thod 10/04/21 19:54 MDM - Abdominal Pain Medical Decision Making Patient comes in for worsening left upper quadrant abdominal pain starting today. Patient was seen yesterday and started on antibiotics for diverticulitis. Patient denied any fever. On exam abdomen was soft with some tenderness in the left upper quadrant. Bowel sounds were present. Differential diagnosis includes but not limited to diverticulitis, renal calculi, constipation. Laboratory values were unremarkable. CT of the abdomen pelvis noted diverticulitis without any signs of abscess or perforation. Reviewed exam with patient with recommendations for treatment and follow-up. Lab Data : 10/04/21 20:41 10/04/21 20:41 Labs/Radiology: Radiology Impressions Abdomen/Pelvis CT 10/04/21 20:58 IMPRESSION: 1. Acute uncomplicated diverticulitis in the distal descending colon. 2. Punctate nonobstructing renal stones in the left kidney. 3. Hepatic steatosis. Laboratory Results WBC 9.3 10^3/uL (4.0-10.0) 10/04/21 20:41 RBC 5.23 10^6/uL (4.1-5.3) 10/04/21 20:41 Hgb 15.5 g/dL (11.5-15.3) H 10/04/21 20:41 Hct 45.8 % (37.0-47.0) 10/04/21 20:41 MCV 87.6 fl (81-99) 10/04/21 20:41 MCH 29.6 pg (28.0-34.0) 10/04/21 20:41 MCHC 33.8 g/dL (30.0-36.0) 10/04/21 20:41 RDW 12.1 % (12.1-15.1) 10/04/21 20:41 Plt Count 211 10^3/cmm (130-400) 10/04/21 20:41 MPV 11.6 fL (7.4-10.4) H 10/04/21 20:41 Neut % (Auto) 73.8 % 10/04/21 20:41 Lymph % (Auto) 16.8 % 10/04/21 20:41 Heard % (Auto) 8.2 % 10/04/21 20:41 Eos % (Auto) 0.5 % 10/04/21 20:41 Baso % (Auto) 0.4 % 10/04/21 20:41 Neut # (Auto) 6.83 10^3/uL (1.8-7.7) 10/04/21 20:41 Lymph # (Auto) 1.6 10^3/uL (0.8-4.8) 10/04/21 20:41 Heard # (Auto) 0.8 10^3/uL (0.2-0.9) 10/04/21 20:41 Eos # (Auto) 0.1 10^3/uL (0.0-0.8) 10/04/21 20:41 Baso # (Auto) 0.0 10^3/uL (0.0-0.1) 10/04/21 20:41 Nucleated RBC % (auto) 0 % 10/04/21 20:41 Nucleated RBCs # 0.0 /100WBC 10/04/21 20:41 Sodium 138 mmol/L (136-145) 10/04/21 20:41 Potassium 3.9 mmol/L (3.5-5.1) 10/04/21 20:41 Chloride 102 mmol/L (98-107) 10/04/21 20:41 Carbon Dioxide 23 mmol/L (22-29) 10/04/21 20:41 Anion Gap 16.9 (5-19) 10/04/21 20:41 BUN 9 mg/dL (6-20) 10/04/21 20:41 Creatinine 0.6 mg/dL (0.5-0.9) 10/04/21 20:41 GFR Calculation 108.6 mL/min (90-130) 10/04/21 20:41 Glucose 120 mg/dL (65-115) H 10/04/21 20:41 Calculated Osmolality 286 mOsm/kg (285-295) 10/04/21 20:41 Calcium 9.5 mg/dL (8.5-10.5) 10/04/21 20:41 Total Bilirubin 0.7 mg/dL (0.15-1.2) 10/04/21 20:41 AST 27 U/L (0-32) 10/04/21 20:41 ALT 52 U/L (0-33) H 10/04/21 20:41 Alkaline Phosphatase 105 U/L (35-105) 10/04/21 20:41 Total Protein 7.6 g/dL (6.6-8.7) 10/04/21 20:41 Albumin 4.4 g/dL (3.5-5.2) 10/04/21 20:41 Globulin 3.2 g/dL (1.3-4.6) 10/04/21 20:41 Lipase 33 U/L (13-60) 10/04/21 20:41 Urine Color Yellow (Yellow) 10/04/21 20:05 Urine Appearance Clear (CLEAR) 10/04/21 20:05 Urine pH 7 (5-7) 10/04/21 20:05 Ur Specific [place] 1.020 (1.005-1.030) 10/04/21 20:05 Urine Protein Neg (Negative) 10/04/21 20:05 Urine Glucose (UA) Norm (Normal) 10/04/21 20:05 Urine Ketones Negative (Negative) 10/04/21 20:05 Urine Blood Neg (Negative) 10/04/21 20:05 Urine Nitrate Negative (Negative) 10/04/21 20:05 Urine Bilirubin Neg (Negative) 10/04/21 20:05 Urine Urobilinogen Norm mg/dL (Negative) 10/04/21 20:05 Ur Leukocyte Esterase Negative (Negative) 10/04/21 20:05 Discharge Plan Discharge Patient Disposition: Home Clinical Impression: Diverticulitis Condition: Stable Prescriptions: New hydrocodone-acetaminophen 5-325 mg tablet 1 tab PO Q6H PRN (Reason: pain (scale score 7-10)) Qty: 10 0RF No Action atorvastatin [Lipitor] 10 mg tablet 40 mg PO DAILY tramadol 50 mg tablet 50 mg PO Q6H PRN (Reason: pain) Qty: 20 0RF Cipro 500 mg tablet 500 mg PO BID Qty: 14 0RF Discharge Orders: Discharge ED (Routine); Ordered 10/04/21 Ordered By: Jarrett Aguilera Referrals: John Rowley DO [Primary Care Provider] - Discharge Diet: Usual diet Discharge Activity: Increase activity as tolerated Patient Instructions: Diverticulitis (ED), Diverticulitis Diet (ED) Activity Restrictions/Additional Instructions: Drink plenty of water. Take medications as directed. Follow-up with primary ca re for further instruction. Return to ER for new concerns or worsening symptoms such as fever greater than 100.4, uncontrolled abdominal pain. Coding Level of Care Code ED [employer] for Jyoti Fwd Exam Comprehensive
[2021-10-04] MEDS: HYDROcodone-acetaminophen 7.5-325 mg Tablet 2 TAB PO (22:50)
== END 2021-10-04 23:00 | disposition home or self-care (01) ==
PROVIDERS: Emergency Medicine; Emergency Provider Nurse Practitioner Family; PCP Electrodiagnostic Medicine
DX: K57.92 Diverticulitis of intestine, part unspecified, without perforation or abscess without bleeding (principal)
CPT/HCPCS: 74176; 80053; 81003; 83690; 85025; 96374; 96375; 99285; J2270; J2405

== ENCOUNTER 2022-01-13 08:03 | Outpatient (CLI) | payer OTHER, SELFPAY ==
--- NOTE | 2022-01-13 08:11 | MM_ITS ---
WS: [id number] BILATERAL SCREENING DIGITAL TOMOSYNTHESIS MAMMOGRAM WITH CAD HISTORY: SCREENING COMPARISON: 01/10/2021 and 12/18/2019 Bilateral CC and MLO views with tomosynthesis and synthetic mammography submitted. Computer aided det ection analyzed. Breast composition: There are scattered areas of fibroglandular density. No suspicious masses, microc alcifications or architectural distortion. Focal asymmetry with calcification in the central RIGHT br east is stable over several prior years. MM/[id number] IMPRESSION: BI-RADS: 2-Benign FOLLOW UP: 1 Year Follow-up
== END 2022-01-13 08:04 | disposition home or self-care (01) ==
LOC: RAD 08:04
PROVIDERS: PCP Electrodiagnostic Medicine; Visit Provider Electrodiagnostic Medicine
DX: Z12.31 Encounter for screening mammogram for malignant neoplasm of breast (principal)
CPT/HCPCS: 77063; 77067

== ENCOUNTER 2023-01-16 15:17 | Outpatient (CLI) | payer OTHER, SELFPAY ==
--- NOTE | 2023-01-16 15:21 | MM_ITS ---
WS: [id number] BILATERAL 3D TOMOSYNTHESIS DIGITAL SCREENING MAMMOGRAPHY WITH CAD CLINICAL INFORMATION: SCREENING HISTORY: Screening mammogram. No current complaints. COMPARISON: 2021 TECHNIQUE: Bilateral CC and MLO views. FINDINGS: Scattered fibroglandular densities bilaterally. No suspicious focal mass, asymmetry, calcifications, or architectural distortion. No evidence of malignancy. Incidental punctate calcification RIGHT breas t. IMPRESSION: MM/[place] [id number] BI-RADS: 2-Benign FOLLOW UP: 1 Year Follow-up Recommend return to annual screening mammography.
== END 2023-01-16 15:18 | disposition home or self-care (01) ==
LOC: RAD 15:17
PROVIDERS: PCP Electrodiagnostic Medicine; Visit Provider Electrodiagnostic Medicine
DX: Z12.31 Encounter for screening mammogram for malignant neoplasm of breast (principal)
CPT/HCPCS: 77063; 77067

== ENCOUNTER 2024-01-18 09:20 | Outpatient (CLI) | payer OTHER, SELFPAY ==
--- NOTE | 2024-01-18 09:28 | MM_ITS ---
WS: [id number] VIEWS: MLO and CC views both breasts. 3D digital tomosynthesis is also included in this exam. Comparison made with prior exam of 07/12/2018, 12/18/2019, 01/10/2021, 01/13/2022,. Findings: There are scattered areas of fibroglandular density. No suspicious mass, tumor calcification or architectural distortion. MM/MM scr BI tomosynthesis [id number] Impression: BI-RADS: 2 - Benign. FOLLOW-UP: 1 Year Follow-up This mammogram was also analyzed by the Computer Aided Detection System R2 Imag e [employer]our Grinder.
== END 2024-01-18 09:21 | disposition home or self-care (01) ==
LOC: RAD 09:23
PROVIDERS: PCP Electrodiagnostic Medicine; Visit Provider Electrodiagnostic Medicine
DX: Z12.31 Encounter for screening mammogram for malignant neoplasm of breast (principal); R92.323 Mammographic fibroglandular density, bilateral breasts
CPT/HCPCS: 77063; 77067

== ENCOUNTER 2024-11-27 12:54 | Outpatient (CLI) | payer SELFPAY | END 2024-11-27 12:55 | disposition home or self-care (01) | PROVIDERS: PCP Electrodiagnostic Medicine; Referring Provider Electrodiagnostic Medicine; Visit Provider Internal Medicine Pulmonary Disease | DX: G47.33 Obstructive sleep apnea (adult) (pediatric) (principal) | CPT/HCPCS: G0399 ==